=== PATIENT | male | born 1970 | race Caucasian/White ===

== ENCOUNTER 2016-10-14 18:30 | Emergency (ER) | payer BC ==
[2016-10-14 18:41] VITALS: RESP 18
[2016-10-14] MEDS ORDERED: DIPH,PERTUS(ACELL)TETVAC-LF 0.5 ML VIAL IM ONE (18:41)
[2016-10-14] MEDS ORDERED: ceFAZolin 1,000 MG in DEXTROSE/WATER 1 50ML.BAG IVPB STA (18:41)
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
[2016-10-14] MEDS ORDERED: MORPHINE SULFATE 10 MG/ML SYRINGE IVP STA (19:07)
--- NOTE | 2016-10-14 19:18 | XR ---
EXAMINATION TYPE: XR elbow complete LT DATE OF EXAM: 10/14/2016 7:11 PM CLINICAL HISTORY: pain TECHNIQUE: Frontal, lateral and oblique images of the left elbow are obtained. COMPARISON: None. FINDINGS: There is curvilinear ossific type density adjacent to the lateral humeral epicondyles. Tiny avulsion fractures difficult to exclude. Remaining osseous structures are intact. No pathologic fat pad seen. Soft tissue laceration noted. IMPRESSION: There is curvilinear ossific type density adjacent to the lateral humeral epicondyles. Tiny avulsion fracture is difficult to exclude. ICD 10 NO FRACTURE, INITIAL EVALUATION
--- NOTE | 2016-10-14 19:19 | XR ---
EXAMINATION TYPE: XR wrist complete LT DATE OF EXAM: 10/14/2016 7:11 PM CLINICAL HISTORY: pain TECHNIQUE: Frontal, lateral and oblique images of the left wrist are obtained. COMPARISON: None. FINDINGS: There is no acute fracture/dislocation evident. The joint spaces appear within normal ball its. The overlying soft tissue appears unremarkable. IMPRESSION: There is no acute fracture or dislocation seen. ICD 10 NO FRACTURE, INITIAL EVALUATION
[2016-10-14 19:20] LABS: Basophils # (A) 0.1 k/uL (0-0.2); Basophils % (A) 1 %; CH 32.6; Eosinophils # (A) 0.3 k/uL (0-0.7); Eosinophils % (A) 2 %; HCT 45.7 % (39.0-53.0); HDW 2.36; HGB 15.8 gm/dL (13.0-17.5); Luc # (Auto) 0.37; Luc % (Auto) 3; Lymphocytes # (A) 2.9 k/uL (1.0-4.8); Lymphocytes % (A) 27 %; MCH 32.3 pg (25.0-35.0); MCHC 34.5 g/dL (31.0-37.0); MCV 93.5 fL (80.0-100.0); Mean Platelet Volume 6.7; Monocytes # (A) 0.7 k/uL (0-1.0); Monocytes % (A) 7 %; Neutrophils # (A) 6.5 k/uL (1.3-7.7); Neutrophils % (A) 60 %; RBC 4.89 m/uL (4.30-5.90); RDW 12.7 % (11.5-15.5); WBC 10.8 k/uL (3.8-10.6); WBC (Perox) 10.07
[2016-10-14 19:28] LABS: Anion Gap 19 mmol/L; Blood Urea Nitrogen 10 mg/dL (9-20); Calcium 9.6 mg/dL (8.4-10.2); Carbon Dioxide 20 mmol/L (22-30); Chloride 103 mmol/L (98-107); Glucose 122 mg/dL (74-99); Non-African American GFR(MDRD) >60 (>60 ml/min/1.73 sqM); Potassium 4.2 mmol/L (3.5-5.1); Sodium 142 mmol/L (137-145)
[2016-10-14 19:35] LABS: Prothrombin Time 10.1 sec (9.0-12.0)
[2016-10-14 19:42] LABS: Partial Thromboplastin Time 21.7 sec (22.0-30.0)
[2016-10-14 19:54] VITALS: TEMP 98.3
[2016-10-14] MEDS ORDERED: MORPHINE SULFATE 4 MG/ML SYRINGE IVP STA (20:31)
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
[2016-10-14 21:35] VITALS: BP 118/66; PULSE 87
== END 2016-10-14 21:37 | disposition home or self-care (01) ==
LOC: EC 18:30
DX: S51.832A Puncture wound without foreign body of left forearm, initial encounter (principal); S80.812A Abrasion, left lower leg, initial encounter; E11.9 Type 2 diabetes mellitus without complications; F17.200 Nicotine dependence, unspecified, uncomplicated; Z23 Encounter for immunization; Z79.84 Long term (current) use of oral hypoglycemic drugs; Z79.899 Other long term (current) drug therapy; V86.09XA Driver of other special all-terrain or other off-road motor vehicle injured in traffic accident, initial encounter; Y92.410 Unspecified street and highway as the place of occurrence of the external cause
CPT/HCPCS: 36415; 80048; 85025; 85610; 85730; 73080; 73110; 90715; 99285; 96365; 96375; 96376; 90471; J2270 ×2; J0690

== ENCOUNTER → 2019-08-17 | Outpatient (CLI) | payer OTHER ==
[2019-08-17 10:38] LABS: Basophils # (A) 0.1 k/uL (0-0.2); Basophils % (A) 1 %; Eosinophils # (A) 0.2 k/uL (0-0.7); Eosinophils % (A) 3 %; HCT 47.4 % (39.0-53.0); HGB 15.7 gm/dL (13.0-17.5); Lymphocytes # (A) 1.8 k/uL (1.0-4.8); Lymphocytes % (A) 24 %; MCH 30.9 pg (25.0-35.0); MCV 93.6 fL (80.0-100.0); Mean Platelet Volume 7.6; Monocytes # (A) 0.8 k/uL (0-1.0); Monocytes % (A) 10 %; Neutrophils # (A) 4.5 k/uL (1.3-7.7); Neutrophils % (A) 59 %; Platelet Count 210 k/uL (150-450); RBC 5.07 m/uL (4.30-5.90); RDW 12.1 % (11.5-15.5); WBC 7.6 k/uL (3.8-10.6)
[2019-08-17 16:23] LABS: African American GFR (CKD) 128.4 (60.0-200.0); Albumin 5.1 g/dL (3.80-4.90); Albumin/Globulin Ratio 2.13 (1.60-3.17); Anion Gap 10.5 mmol/L (4.00-12.00); BUN/Creat Ratio 22.86 Ratio (12.00-20.00); Carbon Dioxide 30.5 mmol/L (21.6-31.8); Chol/HDL Ratio 4.03; Globulin 2.4 g/dL (1.6-3.3); Non-African American GFR(CKD) 110.8 (60.0-200.0); Potassium 5.2 mmol/L (3.5-5.5); Total Bilirubin 0.8 mg/dL (0.3-1.2); Total Protein 7.5 g/dL (6.2-8.2)
== END | disposition home or self-care (01) ==
LOC: LABWHC1 08:44
PROVIDERS: ATTEND Family Medicine
DX: Z00.00 Encounter for general adult medical examination without abnormal findings (principal); Z12.5 Encounter for screening for malignant neoplasm of prostate
CPT/HCPCS: 80061; 80053; 84443; 85025; 36415; G0103

== ENCOUNTER → 2023-11-10 | Day surgery (SDC) | payer OTHER ==
[2023-11-08 15:33] VITALS: BMI 29.4
[~2023-11-10] MED LIST: fentaNYL (PF) 50 MCG/ML 2 ML AMP ONE
[2023-11-10] MEDS: SODIUM CHLORIDE 0.9% 500 ML 500 ML IV ONE (11:20)
[2023-11-10 11:25] LABS: Glucose,Whole Blood 120 mg/dL (70-110)
[2023-11-10 11:27] VITALS: TEMP 97.8
[2023-11-10] MEDS: BENZOCAINE SPRAY 1 CAN TOPICAL ONE (12:37)
[2023-11-10] MEDS: fentaNYL (PF) 50 MCG/ML 2 ML AMP IVP ONE ×2 (12:44→12:48)
[2023-11-10] MEDS: MIDAZOLAM 2 MG/2 ML VIAL IVP ONE ×2 (12:44→12:47)
--- NOTE | 2023-11-10 13:25 | P.TEE ---
Date of Procedure: 11/10/23 Description of Procedure(s): Procedure performed: 1. Transesophageal Echocardiogram with color flow doppler, pulsed wave doppler and continuous wave doppler 2. Moderate conscious sedation. Sedation time 20 mins. Indications: 3-year-old with past medical history of type 2 diabetes, left leg soft tissue infection and gram-negative bacteremia with Enterococcus faecalis was seen at [facility] [place]. To rule out endocarditis due to the JANNETH which showed 6 mm vegetation on noncoronary cusp of aortic valve. For this patient received 6 weeks of IV antibiotic therapy without any medications. Today he is scheduled for a post antibiotic course JANNETH to follow-up on valvular function and vegetation status. Consent: I have discussed the risks, benefits and alternative therapies for the above-mentioned procedure. The patient has indicated understanding and acceptance of the risks of the procedure. Signed consent was obtained and was placed in the paper chart. Procedural Steps: Timeout was performed in usual fashion. Patient's heart rate, blood pressure, oxygen saturation and ECG were monitored. Benzocaine was sprayed liberally in the back of the throat. Bite block was placed between the jaw. 3mg of Versed and 75 mcg of Fentanyl were administered intravenously. After achieving appropriate moderate conscious sedation, JANNETH probe was advanced without difficulty and without any immediate complications to the esophagus. JANNETH study was performed with color flow doppler, pulsed wave doppler and continuous wave doppler. The probe was then removed. Patient tolerated the procedure well. Patient was transferred to the post procedure area in stable and satisfactory condition. Throughout the procedure patient's heart rate, blood pressure, oxygen saturation and ECG were monitored. Total sedation time 20 mins. Complications: none FINDINGS Left Atrium: Normal Left atrial size. No evidence of mass or thrombus seen Left Atrial Appendage: No evidence of thrombus or mass seen in GUCCI Inter atrial septum: Intact inter-atrial septum with no evidence of atrial septal defect or patent foramen ovale. Left Ventricle: Normal global LV size and systolic function Right Atrium: Normal overall RA size Right Ventricle: Normal global RV size and systolic function Aortic Valve: Structurally normal Trileaflet, no significant calcification. 4-5 mm thickening noticed on the edge of the noncoronary cusp which is most likely healed vegetation. There is no mobile structures noticed attached to the valve. Normal valvular function with trace aortic regurgitation Mitral Valve: Struturally normal. No evidence of prolapse. No evidence of stenosis or regurgitation on doppler assessment Pulmonic Valve: Not well visualized. Tricuspid Valve: Structurally normal. Ascending aorta, Aortic root and Aortic arch: Normal size aortic root and ascending aorta. Aortic root 3.9 cm. Ascending aorta 3.3 cm Descending aorta: Mild intimal thickening. 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 Trace aortic regurgitation. No significant valve dysfunction otherwise No other evidence of endocarditis Normal global LV size and systolic function No significant chamber size abnormality Benoit Saenz MD, RPVI, FACC Thank you for allowing [facility] to participate in this patient's care. Feel free to reach out in case of any followup questions.
[2023-11-10 15:49] VITALS: PULSE 84
[2023-11-10 15:52] VITALS: BP 141/80; RESP 16
== END ==
LOC: CATHCVL 10:46
PROVIDERS: ATTEND Student in an Organized Health Care Education/Training Program
DX: I35.1 Nonrheumatic aortic (valve) insufficiency (principal); Z86.79 Personal history of other diseases of the circulatory system; E11.69 Type 2 diabetes mellitus with other specified complication; E78.5 Hyperlipidemia, unspecified; I10 Essential (primary) hypertension; Z87.891 Personal history of nicotine dependence; Z79.84 Long term (current) use of oral hypoglycemic drugs; Z79.899 Other long term (current) drug therapy; Z79.85 Long-term (current) use of injectable non-insulin antidiabetic drugs
CPT/HCPCS: 93312; 93320; 93325; J2250; J3010

== ENCOUNTER 2024-01-28 08:36 | Day surgery (SDC) | payer OTHER ==
[~2024-01-28 08:36] MED LIST changes: +Pre Op ABX Message 1 EACH MISC MISCELLANE ONE; -fentaNYL (PF) 50 MCG/ML 2 ML AMP ONE
[2024-01-28 09:11] LABS: Glucose,Whole Blood 131 mg/dL (70-110)
[2024-01-28] MEDS ORDERED: HYDROmorphone 0.5 MG/0.5 ML SYRINGE IVP PRN (09:12)
[2024-01-28] MEDS ORDERED: SCOPOLAMINE 1 MG/72 HR PATCH TRANSDERM ONE (09:12)
[2024-01-28] MEDS ORDERED: MIDAZOLAM 2 MG/2 ML VIAL IV PRN (09:12)
[2024-01-28] MEDS: ONDANSETRON 4 MG/2 ML VIAL IVP ONE (09:20)
[2024-01-28] MEDS: DEXAMETHASONE SOD PHOSPHATE 4 MG/ML 1 ML VIAL IV ONE (09:20)
[2024-01-28] MEDS: IV FLUID CONTINUATION 1,000 ML IV ONE (09:29)
[2024-01-28] MEDS: LACTATED RINGERS 1,000 ML IV SCH (09:29)
[2024-01-28 09:32] VITALS: TEMP 97
[2024-01-28] MEDS ORDERED: PROPOFOL 10 MG/ML 20 ML VIAL IV ONE (10:19)
[2024-01-28] MEDS ORDERED: MIDAZOLAM 2 MG/2 ML VIAL ONE (10:19)
[2024-01-28] MEDS ORDERED: KETAMINE HCL IN 0.9 % NACL 50 MG/5 ML SYRINGE ONE (10:19)
[2024-01-28] MEDS ORDERED: ceFAZolin 1 GM/50 ML BAG (PMX) ONE (10:19)
[2024-01-28] MEDS ORDERED: fentaNYL (PF) 50 MCG/ML 2 ML AMP ONE (10:19)
[2024-01-28] MEDS: LIDOCAINE 1% INJ 10MG/ML (20 ML MDV) SQ ONE (10:45)
[2024-01-28] MEDS: BUPIVACAINE (PF) 0.5% 30 ML VIAL SQ ONE (10:45)
[2024-01-28] MEDS: LACTATED RINGERS 1,000 ML IV ONE (11:00)
[2024-01-28] MEDS ORDERED: NALOXONE 0.4 MG/ML 1 ML VIAL IV PRN ×2 (11:41)
[2024-01-28] MEDS ORDERED: traMADol 50 MG TAB PO PRN (11:41)
[2024-01-28] MEDS ORDERED: ACETAMINOPHEN TAB 325 MG TAB PO PRN (11:41)
[2024-01-28] MEDS ORDERED: HYDROcodone/APAP 5-325MG 1 EACH TAB PO PRN (11:46)
--- NOTE | 2024-01-28 11:57 | P.OP ---
Date of Procedure: 01/28/24 Preoperative Diagnosis: 1. Full-thickness ulceration left hallux 2. Hallux limitus left foot 3. Diabetes mellitus with peripheral neuropathy Postoperative Diagnosis: Same as above Procedure(s) Performed: Hernandez osteotomy left hallux Implants: None Anesthesia: local Surgeon: Ginny Hammonds Estimated Blood Loss (ml): 10 Pathology: other (Bone sent to pathology of left hallux) Condition: stable Disposition: PACU Indications for Procedure: This is a 53-year-old male presenting to dc with chronic ulceration of his left hallux. He works on his feet daily. He continues to reopen this wound every time it heals. We have tried all different conservative management and offloading to the area. Patient is interested in surgical intervention. Preoperative H&P and lab studies were reviewed. Informed consent was obtained and signed by patient. We noticed no apparent contraindication to proposed surgery. Patient's questions were answered to their satisfaction. Absolutely no guarantees were given or implied. Description of Procedure: Under mild sedation the patient was brought into the operating room and placed on the operating table in the supine position. Following sedation local anesthesia was performed. The foot was scrubbed prepped and draped in the usual aseptic manner with Betadine secondary to the open ulceration. A timeout was performed. Tourniquet had been inflated but then quickly deflated and decided to not use a tourniquet for this case. First a linear incision was made over the first metatarsal phalangeal joint with care to retract any vital neurovascular structures. The extensor hallucis longus was clearly identified and an incision was made medial to this down to the level of bone and joint capsule. The tendon was retracted out of the surgical site. Once the capsule was resected the first metatarsal phalangeal joint was usually visualized. He had good cartilage overlying the first metatarsal head. The joint was very rigid and stiff. Sagittal saw was used to resect the distal aspect of the base of the proximal phalanx of proximal submentally 3 to 4 mm. This piece was taken out in 1 piece with use of an osteotome and a Cirilo. Site was flushed with copious amounts irrigation. Deep closure was performed using 3-0 Vicryl, subcutaneous tissue using 4-0 Vicryl and skin was closed with 3-0 nylon. A final fluoroscopy imaging was used to confirm reduction of deformity and osseous cut. The toe was noted to have great range of motion when loaded and unloaded. Dressing consisting of Betadine soaked Adaptic, 4 x 4 gauze, Paula, Cale bandage was applied. Patient was placed in a surgical shoe. Patient tolerated procedure and anesthesia well without complications and was transported to the recovery room with vital signs stable to and vascular status intact to both feet. Patient will be discharged home per anesthesia. Patient is neuropathic. Patient has follow-up in my office in 1 to 2 weeks. He is to keep his dressing clean dry and intact until then. Ginny Hammonds D.P.M., AACFAS
[2024-01-28 12:09] VITALS: BP 124/75; PULSE 77; RESP 16
== END 2024-01-28 12:43 | disposition home or self-care (01) ==
LOC: OR 08:36
PROVIDERS: ATTEND Podiatrist Foot & Ankle Surgery
DX: M20.5X2 Other deformities of toe(s) (acquired), left foot (principal); E11.42 Type 2 diabetes mellitus with diabetic polyneuropathy; E11.621 Type 2 diabetes mellitus with foot ulcer; L97.529 Non-pressure chronic ulcer of other part of left foot with unspecified severity
CPT/HCPCS: 88307; 88311